=== PATIENT | female | born 1995 | race Caucasian/White ===

== ENCOUNTER 2017-06-28 10:08 | Emergency (ER) | payer OTHER, MEDICAID | END 2017-06-28 12:12 | disposition home or self-care (01) | LOC: M ED 10:08 | DX: T16.2XXA Foreign body in left ear, initial encounter (principal); Y92.018 Other place in single-family (private) house as the place of occurrence of the external cause | CPT/HCPCS: 69209 ==

== ENCOUNTER → 2023-10-29 | Outpatient (REF) | LOC: M LAB 13:39 | PROVIDERS: ATTEND Nurse Practitioner Adult Health | DX: Z01.89 Encounter for other specified special examinations (principal) ==

== ENCOUNTER → 2024-01-28 | Outpatient (REF) | LOC: M EMP 07:25 | PROVIDERS: ATTEND Family Medicine | DX: U07.1 COVID-19 (principal) ==

== ENCOUNTER 2024-03-30 10:29 | Emergency (ER) | payer BC, MEDICAID, OTHER ==
[~2024-03-30] VITALS: Ht 167.6 cm; Wt 61.0 kg
[2024-03-30 13:08] VITALS: BP 110/67; TEMP 96.6; O2SAT 100
== END 2024-03-30 13:14 | disposition home or self-care (01) ==
LOC: M ED 10:29
DX: S16.1XXA Strain of muscle, fascia and tendon at neck level, initial encounter (principal); Y92.9 Unspecified place or not applicable; Y93.9 Activity, unspecified; Y99.0 Civilian activity done for income or pay; Y04.2XXA Assault by strike against or bumped into by another person, initial encounter